=== PATIENT | female | born 1995 | race Two or more races ===

== ENCOUNTER 2020-11-06 06:38 | Emergency (ER) | payer OTHER ==
[2020-11-06] MEDS ORDERED: DEXAMETHASONE 4 MG TABLET PO ONE (07:15)
[2020-11-06] MEDS ORDERED: AMOX1TAB61 PO (07:20)
--- NOTE | 2020-11-06 07:21 | PHYS DOC ---
Past History Past Medical History: No Pertinent History Additional Past Surgical Histo: Ear tubes Smoking: Non-smoker Alcohol Use: None Drug Use: Marijuana General Adult EDM: Chief Complaint: EARACHE/EAR PAIN HPI: HPI: 24-year-old female presents with report of sudden right earache that started upon waking this morning. Patient reports history of ear tubes as a child. Denies any fever or chills. Denies nasal congestion. Patient reports concerned that she might have irritated her right ear with a "Q-tip ". Denies known sick contacts. Denies known exposure to COVID-19. Denies . Reports last menstrual period 1 week ago. Review of Systems: Review of Systems: Constitutional: Denies fever or chills Eyes: Denies redness or eye pain HENT: Denies nasal congestion or sore throat; reports right-sided earache Respiratory: Denies cough or shortness of breath Cardiovascular: Denies chest pain or palpitations GI: Denies abdominal pain, nausea, or vomiting : Denies dysuria or hematuria Musculoskeletal: Denies back pain or joint pain Integument: Denies rash or skin lesions Neurologic: Denies headache, focal weakness or sensory changes Complete systems were reviewed and found to be within normal limits, except as documented in this note. Current Medications: Current Meds: Current Medications Medications (Trade) Dose Ordered Sig/[facility] Start Time Stop Time Status Last Admin Dose Admin Dexamethasone (Decadron) 10 mg 1X ONCE 11/06/20 07:15 11/06/20 07:16 UNV Physical Exam: PE: Constitutional: Well developed, well nourished, no acute distress, non-toxic appearance HENT: Normocephalic, atraumatic, retained eartube on left, right TM with purulent fluid noted and mild canal erythema Eyes:Conjunctiva normal, no discharge Neck: Normal range of motion, no tenderness, supple Lungs & Thorax: No respiratory distress, equal chest rise and fall Skin: Warm, dry, no erythema, no rash Neurologic: Alert and oriented X 3, no focal deficits noted Psychologic: Affect normal, judgment normal EKG: EKG: [] Radiology/Procedures: Radiology/Procedures: [] Heart Score: C/O Chest Pain: N/A Course & Med Decision Making: Course & Med Decision Making Patient presents with sudden earache to right ear that started this morning. Physical exam consistent for otitis media. Empiric antibiotic initiated. Symptomatic treatment provided with oral long-acting steroid. Patient stable for discharge with outpatient follow-up with PCP. Discussed findings and plan with patient and significant other, who acknowledge understanding and agreement. Raphael Disclaimer: Raphael Disclaimer: This electronic medical record was generated, in whole or in part, using a voice recognition dictation system. Departure Departure: Impression: Primary Impression: Otitis media Qualified Codes: H66.90 - Otitis media, unspecified, unspecified ear Disposition: DC HOME SELF CARE/HOMELESS Condition: STABLE Referrals: PCP,NO (PCP) Patient Instructions: Otitis Media, Adult, [id number] Additional Instructions: Use over the counter Tylenol and/or Ibuprofen for pain or discomfort Scripts Amoxicillin/Potassium Clav (AUGMENTIN 875-125 TABLET) 1 Each Tablet 1 TAB PO BID for Otitis Media for 7 Days, #14 TAB 0 Refills Prov: OLESYA WHITT DO 11/06/20 OLESYA WHITT DO Nov 06, 2020 07:21
[2020-11-06] MEDS ORDERED: AMOXICILLIN/K CLAV 875/125MG TABLET. PO ONE (07:30)
== END 2020-11-06 07:40 | disposition home or self-care (01) ==
LOC: ER 06:38
DX: H66.91 Otitis media, unspecified, right ear (principal); F12.90 Cannabis use, unspecified, uncomplicated; Z98.890 Other specified postprocedural states
CPT/HCPCS: 99283; J8540